=== PATIENT | female | born 1975 | race Caucasian/White ===

== ENCOUNTER → 2020-06-11 | Outpatient (CLI) | payer OTHER ==
[2020-06-11 19:53] LABS: Total Protein,CSF 27 mg/dL (12-60)
[2020-06-11 20:36] LABS: Appearance,CSF Clear; CSF Tube Number 4
[2020-06-11 20:37] LABS: CSF Tube Volume 3; Nucleated Cells, CSF 1 u/L (0-5); Red Blood Cell,CSF 0 u/L (0-10)
== END | disposition home or self-care (01) ==
LOC: LABWHC1 12:33
PROVIDERS: ATTEND Physician Assistant
DX: G35 Multiple sclerosis (principal); H53.2 Diplopia; R42 Dizziness and giddiness
CPT/HCPCS: 36415; 82040; 82042; 82784; 83873; 83916; 84157; 87801; 89050

== ENCOUNTER → 2020-07-26 | Outpatient (CLI) | payer OTHER | END | disposition home or self-care (01) | LOC: LABWHC1 12:28 | PROVIDERS: ATTEND Surgery | DX: Z01.818 Encounter for other preprocedural examination (principal); Z20.828 Contact with and (suspected) exposure to other viral communicable diseases | CPT/HCPCS: U0003; C9803 ==

== ENCOUNTER 2020-08-07 06:38 | Day surgery (SDC) | payer OTHER ==
[~2020-08-07 06:38] MED LIST: ACETAMINOPHEN TAB 500 MG TAB PO PRN; DEXAMETHASONE SOD PHOSPHATE 4 MG/ML 1 ML VIAL IV ONE; HEPARIN SODIUM,PORCINE 5,000 UNIT/ML 1 ML VIAL SQ PRN; LACTATED RINGERS 1,000 ML IV SCH; LIDOCAINE 1% (10MG/ML) FOR IV START INTRADERMA PRN; MIDAZOLAM 2 MG/2 ML VIAL IV PRN; ONDANSETRON 4 MG/2 ML VIAL IVP ONE; Pre Op ABX Message 1 EACH MISC MISCELLANE ONE
[2020-08-07] MEDS ORDERED: BUPIVACAINE (PF) 0.25% 30 ML VIAL SQ ONE ×2 (07:32)
[2020-08-07] MEDS ORDERED: ceFAZolin 1,000 MG VIAL ONE (07:49)
[2020-08-07] MEDS ORDERED: fentaNYL (PF) 50 MCG/ML 2 ML AMP ONE (07:49)
[2020-08-07] MEDS ORDERED: SUCCINYLCHOLINE CHLORIDE 100 MG/5 ML SYR IV ONE (07:49)
[2020-08-07] MEDS ORDERED: LIDOCAINE 1% INJ 10MG/ML (20 ML MDV) ONE (07:49)
[2020-08-07] MEDS ORDERED: PROPOFOL 10 MG/ML 20 ML VIAL IV ONE (07:49)
[2020-08-07] MEDS ORDERED: MIDAZOLAM 2 MG/2 ML VIAL ONE (07:49)
[2020-08-07] MEDS ORDERED: SODIUM CHLORIDE 0.9% 50 ML with ceFAZolin 2,000 MG IV ONE ×2 (07:54)
--- NOTE | 2020-08-07 08:34 | P.GSHP ---
History of Present Illness H&P Date: 08/07/20 Chief Complaint: Weakness, pain This a 45-year-old female who presents today for left thigh muscle biopsy. Patient being worked up for myopathy. Past Medical History Past Medical History: COPD, GERD/Reflux, Hyperlipidemia, Hypertension, Myocardial Infarction (PA) Additional Past Medical History / Comment(s): HAS BEEN HAVING SEVERE MUSCLE SPASMS. HANDS GO NUMB FREQUENTLY. CONSTANT PAIN, FALLS EASILY. VERTIGO, BILAT RINGING IN EARS Last Myocardial Infarction Date:: 2017 History of Any Multi-Drug Resistant Organisms: None Reported Past Surgical History: Appendectomy, Section, Heart Catheterization With Stent, Hysterectomy, Orthopedic Surgery, Tubal Ligation Additional Past Surgical History / Comment(s): heart sx as child. RT HAND SX Past Anesthesia/Blood Transfusion Reactions: No Reported Reaction Date of Last Stent Placement:: 2017 Smoking Status: Current every day smoker Medications and Allergies Home Medications Medication Instructions Recorded Confirmed Type Aspirin [Adult Low Dose Aspirin EC] 81 mg PO HS 07/31/20 08/07/20 History Atorvastatin [Lipitor] 40 mg PO HS 07/31/20 08/07/20 History Clopidogrel [Plavix] 75 mg PO HS 07/31/20 08/07/20 History DULoxetine HCL [Cymbalta] 30 mg PO BID 07/31/20 08/07/20 History EPINEPHrine (Auto Inject) [Epipen] 0.3 mg IM ONCE PRN 07/31/20 08/07/20 History Isosorbide Mononitrate [Isosorbide 30 mg PO BID 07/31/20 08/07/20 History Mononitrate ER] Metoprolol Tartrate [Lopressor] 12.5 mg PO BID 07/31/20 08/07/20 History Mirtazapine [Remeron] 15 mg PO HS 07/31/20 08/07/20 History Nitroglycerin Sl Tabs [Nitrostat] 0.4 mg SUBLINGUAL Q5M PRN 07/31/20 08/07/20 History Omeprazole 20 mg PO BID 07/31/20 08/07/20 History amLODIPine BESYLATE 10 mg PO HS 07/31/20 08/07/20 History hydrOXYzine HCL 10 mg PO Q6HR PRN 07/31/20 08/07/20 History Allergies Allergy/AdvReac Type Severity Reaction Status Date / Time erythromycin base Allergy Rash/Hives Verified 07/31/20 15:30 Iodinated Contrast Media Allergy Rash/Hives Verified 07/31/20 15:30 Penicillins Allergy Rash/Hives Verified 07/31/20 15:30 Surgical - Exam Vital Signs Temp Pulse Resp BP Pulse Ox 98.2 F 84 16 139/96 97 08/07/20 07:05 08/07/20 07:05 08/07/20 07:05 08/07/20 07:05 08/07/20 07:05 - General well developed, well nourished, no distress - Eyes PERRL - ENT normal pinna - Neck no masses - Respiratory normal expansion - Cardiovascular Rhythm: regular - Abdomen Abdomen: soft, non tender Assessment and Plan Assessment: Muscle pain and weakness. Patient will undergo left thigh muscle biopsy to evaluate possible myopathy.
--- NOTE | 2020-08-07 08:36 | P.OP ---
Date of Procedure: 08/07/20 Preoperative Diagnosis: Myopathy Postoperative Diagnosis: Myopathy Procedure(s) Performed: Left thigh quadriceps biopsy Anesthesia: DELROY Surgeon: Jono Maddox Estimated Blood Loss (ml): 5 Pathology: other (Muscle biopsy) Condition: stable Disposition: PACU Description of Procedure: The patient's placed on the operative table in supine position. She received general anesthesia. Her left thigh was prepped and draped usual fashion. The skin was incised and using left cautery the subcu tissue divided. The fascia was opened metastases months scissors. Positive muscles then divided. The muscle was suture ligated proximally distally and the Using Metzenbaum scissors as a muscle was cut and dissected free. The specimen sent to pathology. The fascia was closed with #1 Vicryl. Skin was closed 3-0 Monocryl. Dermabond was applied. Patient top she will was sent to recovery room stable condition.
[2020-08-07 08:49] VITALS: TEMP 97.1
[2020-08-07] MEDS: HYDROmorphone 0.5 MG/0.5 ML SYRINGE IVP PRN ×4 (08:50→09:15)
[2020-08-07] MEDS ORDERED: PROMETHAZINE INJ 25 MG/ML 1 ML VIAL IVPB ONE (10:45)
[2020-08-07 10:48] VITALS: RESP 16
[2020-08-07 12:23] VITALS: BP 102/68; PULSE 86
--- NOTE | 2020-08-09 14:18 | CDI ---
Date: 08.09.2020 [employer] Chief Name: Dianne Young Phone: If any questions, call Hillary Giron Commercial Mortgage Broker at [phone] Patient Name: Margy Mays Admit Date 08.07.20 Discharge Date: 08.07.20 ATTENTION: The [facility] Coding Staff appreciate your assistance in clarifying documentation. Please respond to the clarification below the line at the bottom and electronically sign. The [facility] Coding staff will review the response and follow-up if needed. Please note: Queries are made part of the Legal Health Record. If you have any questions, please contact the Commercial Mortgage Broker. Dear Dr. Maddox In order to code to the greatest specificity and for the greatest reimbursement I need the following information: Please specify whether the muscle biopsy was superficial or deep. Thank you for your kind consideration. Deep muscle biopsy MTDD
== END 2020-08-07 12:18 | disposition home or self-care (01) ==
LOC: OR 06:38
PROVIDERS: ATTEND Surgery
DX: G72.9 Myopathy, unspecified (principal); J44.9 Chronic obstructive pulmonary disease, unspecified; K21.9 Gastro-esophageal reflux disease without esophagitis; E78.5 Hyperlipidemia, unspecified; I10 Essential (primary) hypertension; I25.2 Old myocardial infarction; R20.0 Anesthesia of skin; R52 Pain, unspecified; R29.6 Repeated falls; R42 Dizziness and giddiness; H93.13 Tinnitus, bilateral; I25.119 Atherosclerotic heart disease of native coronary artery with unspecified angina pectoris; F32.9 Major depressive disorder, single episode, unspecified; F17.210 Nicotine dependence, cigarettes, uncomplicated; Z90.49 Acquired absence of other specified parts of digestive tract; Z98.890 Other specified postprocedural states; Z95.5 Presence of coronary angioplasty implant and graft; Z90.710 Acquired absence of both cervix and uterus; Z98.51 Tubal ligation status; Z79.82 Long term (current) use of aspirin; Z79.899 Other long term (current) drug therapy; Z79.02 Long term (current) use of antithrombotics/antiplatelets; Z88.1 Allergy status to other antibiotic agents; Z91.041 Radiographic dye allergy status; Z88.0 Allergy status to penicillin
CPT/HCPCS: 20205; J2250; J1644; J1100; J2550; J2405; J0690; J2001; J3010; J0330; J2704; J1170

== ENCOUNTER → 2021-09-06 | Outpatient (CLI) | payer OTHER ==
--- NOTE | 2021-09-06 11:57 | FL ---
COMPARISON: NONE DATE OF EXAM: 09/06/2021 HISTORY: Dysphasia A number of thin and thick substances were ingested under the care of the department of speech pathol ogy. There is no evidence of aspiration or penetration. There is no evidence of obstruction. 32 seconds of fluoroscopy and no images. IMPRESSION: 1. No evidence of aspiration or penetration.
== END | disposition home or self-care (01) ==
LOC: RADFLMAIN 10:54
PROVIDERS: ATTEND Psychiatry & Neurology Neurology
DX: R47.02 Dysphasia (principal)
CPT/HCPCS: 36415; 74230